=== PATIENT | female | born 1985 | race Caucasian/White ===

== ENCOUNTER 2017-04-20 15:12 | Emergency (ER) | payer BC, OTHER, SELFPAY ==
[~2017-04-20] VITALS: Ht 170.2 cm; Wt 88.2 kg
[~2017-04-20 15:12] MED LIST: /CIPR75TA OR; /ONDA4TA PO; CLIN150C PO; FLAG500T OR; NUVARING PV; XANA0.25 PO
[2017-04-20] MEDS ORDERED: LIDOCAINE 2% MDV 20 ML VIAL SC ONE (16:45)
[2017-04-20] MEDS ORDERED: ADACEL/BOOSTRIX VACCINE (DIPHTH/PERTUSS/ACELL/TETANUS)0.5ML SYR (90715) IM ONE (17:30)
[2017-04-20 17:40] VITALS: BP 136/73
== END 2017-04-20 17:41 | disposition home or self-care (01) ==
LOC: M ED 15:12
DX: S61.011A Laceration without foreign body of right thumb without damage to nail, initial encounter (principal); W26.0XXA Contact with knife, initial encounter; Y92.099 Unspecified place in other non-institutional residence as the place of occurrence of the external cause; Y93.89 Activity, other specified; Y99.9 Unspecified external cause status; Z83.49 Family history of other endocrine, nutritional and metabolic diseases

== ENCOUNTER → 2017-07-14 | Outpatient (REF) | payer BC | LOC: M LAB REF 09:01 | PROVIDERS: ATTEND Physician Assistant Medical | DX: N39.0 Urinary tract infection, site not specified (principal) ==

== ENCOUNTER → 2021-05-28 | Outpatient (REF) | payer BC ==
[~2021-05-28] MED LIST changes: -/ONDA4TA PO; +ONDA-1 PO
== END ==
LOC: M SFHCWAGY 16:41
PROVIDERS: ATTEND Nurse Practitioner Women's Health
DX: Z12.4 Encounter for screening for malignant neoplasm of cervix (principal)
CPT/HCPCS: 87624; G0123

== ENCOUNTER → 2021-06-05 | Outpatient (REF) | payer BC | LOC: M SFHCWAGY 13:08 | PROVIDERS: ATTEND Nurse Practitioner Women's Health | DX: R30.0 Dysuria (principal) ==

== ENCOUNTER → 2021-08-30 | Outpatient (REF) | payer BC ==
[2021-08-30 18:10] LABS: FOLATE 12.8 NG/ML
== END ==
LOC: M LAB REF 16:25
PROVIDERS: ATTEND Registered Nurse
DX: R53.83 Other fatigue (principal)

== ENCOUNTER → 2021-09-18 | Outpatient (CLI) | payer BC ==
--- NOTE | 2021-09-18 10:35 | REP ---
INDICATION: THYROMEGALY COMPARISON: None. TECHNIQUE: Jiménez scale and color evaluation of the thyroid gland using the linear high frequency transducer. FINDINGS: The thyroid gland is essentially normal in contour, shape, and echogenicity. Few small scattered bilateral hypodensities measuring up to roughly 2 mm diameter are incidental/nonspecific. Right lobe measures 5.8 x 2.1 x 1.8 cm. Left lobe measures 5.6 x 1.7 x 1.5 cm. IMPRESSION: Thyroid gland is upper limits of normal in size with incidental findings. <Electronically signed by Benjie Elaine > 09/18/21 1038
== END ==
LOC: M RAD 10:08
PROVIDERS: ATTEND Registered Nurse
DX: E01.0 Iodine-deficiency related diffuse (endemic) goiter (principal)

== ENCOUNTER → 2022-06-28 | Outpatient (CLI) | payer BC | LOC: M PLALAB 15:42 | PROVIDERS: ATTEND Obstetrics & Gynecology | DX: O26.851 Spotting complicating pregnancy, first trimester (principal); Z3A.00 Weeks of gestation of pregnancy not specified ==

== ENCOUNTER → 2022-07-24 | Outpatient (REF) | payer BC | LOC: M SFHCWAGY 17:13 | PROVIDERS: ATTEND Obstetrics & Gynecology | DX: Z12.4 Encounter for screening for malignant neoplasm of cervix (principal) | CPT/HCPCS: 87624; G0123 ==

== ENCOUNTER → 2022-10-29 | Outpatient (CLI) | payer BC | LOC: M PLALAB 09:20 | PROVIDERS: ATTEND Advanced Practice Midwife | DX: Z34.90 Encounter for supervision of normal pregnancy, unspecified, unspecified trimester (principal) ==

== ENCOUNTER → 2022-10-31 | Outpatient (CLI) | payer BC | LOC: M PLALAB 08:12 | PROVIDERS: ATTEND Advanced Practice Midwife | DX: Z34.90 Encounter for supervision of normal pregnancy, unspecified, unspecified trimester (principal) ==

== ENCOUNTER → 2022-11-07 | Outpatient (CLI) | payer BC ==
[2022-11-07 11:10] LABS: HEMATOCRIT 38.5 % (36.0-47.0); HEMOGLOBIN 13.1 g/dl (12.0-15.5); MEAN CORPUSCULAR HEMOGLOBIN 30.4 pg (27.0-33.0); MEAN CORPUSCULAR VOLUME 89.3 fl (80.0-96.0); PLATELET COUNT, AUTOMATED 222 10^3/uL (150-450); RED BLOOD COUNT 4.31 10^6/uL (4.00-5.40); WHITE BLOOD COUNT 6.2 10^3/uL (4.0-10.0)
[2022-11-07 12:06] LABS: HIV 1&2 SCREEN CENTAUR NEGATIVE (NEGATIVE)
[2022-11-07 12:13] LABS: HEPATITIS C VIRUS ABY INDEX < 0.0 INDEX (<0.8)
[2022-11-07 12:47] LABS: GC DNA AMPLIFICATION NEGATIVE (NEGATIVE)
== END ==
LOC: M PLALAB 09:09
PROVIDERS: ATTEND Specialist
DX: Z34.01 Encounter for supervision of normal first pregnancy, first trimester (principal)

== ENCOUNTER → 2022-12-09 | Outpatient (CLI) | payer BC | LOC: M PLALAB 08:45 | PROVIDERS: ATTEND Advanced Practice Midwife | DX: Z34.81 Encounter for supervision of other normal pregnancy, first trimester (principal); Z3A.00 Weeks of gestation of pregnancy not specified ==

== ENCOUNTER → 2023-02-06 | Outpatient (CLI) | payer BC | LOC: M WHC 07:06 | PROVIDERS: ATTEND Advanced Practice Midwife | DX: Z34.81 Encounter for supervision of other normal pregnancy, first trimester (principal); Z3A.19 19 weeks gestation of pregnancy ==

== ENCOUNTER → 2023-03-03 | Outpatient (CLI) | payer BC | LOC: M WHC 07:41 | PROVIDERS: ATTEND Specialist | DX: Z34.82 Encounter for supervision of other normal pregnancy, second trimester (principal); Z3A.22 22 weeks gestation of pregnancy ==

== ENCOUNTER → 2023-03-25 | Outpatient (CLI) | payer BC ==
[2023-03-25 14:37] LABS: HEMATOCRIT 31.5 % (36.0-47.0); HEMOGLOBIN 10.5 g/dl (12.0-15.5); MEAN CORPUSCULAR HEMOGLOBIN 30.6 pg (27.0-33.0); MEAN CORPUSCULAR HGB CONC 33.3 g/dl (32.0-36.5); MEAN CORPUSCULAR VOLUME 91.8 fl (80.0-96.0); PLATELET COUNT, AUTOMATED 215 10^3/uL (150-450); RED BLOOD COUNT 3.43 10^6/uL (4.00-5.40); WHITE BLOOD COUNT 9.8 10^3/uL (4.0-10.0)
[2023-03-25 16:23] LABS: GC DNA AMPLIFICATION NEGATIVE (NEGATIVE)
== END ==
LOC: M PLALAB 10:50
PROVIDERS: ATTEND Specialist
DX: Z34.82 Encounter for supervision of other normal pregnancy, second trimester (principal)

== ENCOUNTER → 2023-04-16 | Outpatient (CLI) | payer BC | LOC: M LAB 07:30 | PROVIDERS: ATTEND Specialist | DX: Z34.82 Encounter for supervision of other normal pregnancy, second trimester (principal) ==

== ENCOUNTER → 2023-06-06 | Outpatient (REF) | payer BC | LOC: M SFHCWAGY 09:45 | PROVIDERS: ATTEND Obstetrics & Gynecology | DX: Z36.85 Encounter for antenatal screening for Streptococcus B (principal); O09.519 Supervision of elderly primigravida, unspecified trimester; Z3A.00 Weeks of gestation of pregnancy not specified ==

== ENCOUNTER → 2023-06-30 | Outpatient (CLI) | payer BC ==
[2023-06-30 18:12] LABS: ALBUMIN 2.4 G/DL (3.2-5.2); ALKALINE PHOSPHATASE 161 U/L (46-116); ALT/SGPT 37 U/L (7.0-40); AST/SGOT 25 U/L (<34); BILIRUBIN,TOTAL 0.6 MG/DL (0.3-1.2); BLOOD UREA NITROGEN 16 MG/DL (9-23); CALCIUM LEVEL 8.8 MG/DL (8.5-10.1); CARBON DIOXIDE LEVEL 25 MMOL/L (20-31); CHLORIDE LEVEL 109 MMOL/L (98-107); CREATININE FOR GFR 0.82 MG/DL (0.55-1.30); GLOMERULAR FILTRATION RATE > 60.0 (>60); GLUCOSE, FASTING 82 MG/DL (60-100); POTASSIUM SERUM 4.6 MMOL/L (3.5-5.1); SODIUM LEVEL 140 MMOL/L (136-145); TOTAL PROTEIN 5.6 G/DL (5.7-8.2)
== END ==
LOC: M PLALAB 16:04
PROVIDERS: ATTEND Advanced Practice Midwife
DX: O99.713 Diseases of the skin and subcutaneous tissue complicating pregnancy, third trimester (principal); Z3A.00 Weeks of gestation of pregnancy not specified

== ENCOUNTER 2023-07-10 21:59 | Inpatient (IN) | payer BC ==
[~2023-07-10] VITALS: Ht 170.2 cm; Wt 108.0 kg
[2023-07-10 22:12] VITALS: BP 151/70
[2023-07-10] MEDS ORDERED: CARBOPROST TROMETHAMINE 250 MCG/ML AMP IM PRN (22:15)
[2023-07-10] MEDS ORDERED: LACTATED RINGER'S 1000 ML IV PRN (22:15)
[2023-07-10] MEDS ORDERED: OXYTOCIN DRIP 30 UNITS in IV 1 EA IV PRN ×4 (22:15)
[2023-07-10] MEDS ORDERED: TRANEXAMIC ACID INJection 1,000 MG in NS 100 ML IV PRN (22:15)
[2023-07-10] MEDS ORDERED: METHYLERGONOVINE MALEATE 0.2MG/ML 1ML VIAL IM PRN (22:15)
[2023-07-10 22:30] VITALS: BP 128/74
[2023-07-10 22:32] LABS: HEMATOCRIT 36.1 % (36.0-47.0); HEMOGLOBIN 12.4 g/dl (12.0-15.5); MEAN CORPUSCULAR HGB CONC 34.3 g/dl (32.0-36.5); MEAN CORPUSCULAR VOLUME 87.2 fl (80.0-96.0); PLATELET COUNT, AUTOMATED 213 10^3/uL (150-450); RED BLOOD COUNT 4.14 10^6/uL (4.00-5.40); WHITE BLOOD COUNT 11.7 10^3/uL (4.0-10.0)
[2023-07-10 22:50] LABS: LDH LACTATE DEHYDROGENASE 262 U/L (120-246)
[2023-07-10] MEDS ORDERED: ONDANSETRON 4MG 2ML VIAL IV PRN (22:50)
[2023-07-10] MEDS ORDERED: diphenhydrAMINE 50MG/ML VIAL IV PRN (22:50)
[2023-07-10] MEDS ORDERED: ePHEDrine SULFATE 25 MG/5 ML(5MG/ML) SYRINGE IVP PRN (22:50)
[2023-07-10] MEDS ORDERED: FENTANYL/ROPIVACAINE/NACL BAG 100 ML EPIDURAL SCH (22:50)
[2023-07-10] MEDS ORDERED: LR 500 ML IV PRN (22:50)
[2023-07-10] MEDS ORDERED: NALOXONE INJ 0.4MG/1ML VIAL IV PRN (22:50)
[2023-07-10] MEDS ORDERED: EPIDURAL/PCA KEYS XX PRN (22:50)
[2023-07-10 22:51] LABS: ALT/SGPT 23 U/L (7.0-40); AST/SGOT 22 U/L (<34); BILIRUBIN,TOTAL 0.6 MG/DL (0.3-1.2); CREATININE FOR GFR 0.81 MG/DL (0.55-1.30); GLOMERULAR FILTRATION RATE > 60.0 (>60)
[2023-07-10] MEDS ORDERED: OXYTOCIN 30UNITS IN 0.9% NaCl 500ML IV BAG As Ordered ONE (22:55)
[2023-07-10] MEDS ORDERED: LIDOCAINE 1% MDV 20ML VIAL As Ordered ONE (23:01)
[2023-07-10 23:09] LABS: URIC ACID 3.5 MG/DL (3.1-7.8)
[2023-07-10 23:18] VITALS: BP 141/80
[2023-07-10 23:34] VITALS: BP 144/80
[2023-07-10 23:49] VITALS: BP 124/61
[2023-07-11 00:04] VITALS: BP 116/59
[2023-07-11] MEDS ORDERED: LIDOCAINE 1% MDV 20ML VIAL SC ONE (00:50)
[2023-07-11 01:42] VITALS: BP 126/66; O2SAT 98
[2023-07-11] MEDS ORDERED: DIBUCAINE 1% OINTMENT 30GM TOP PRN (02:45)
[2023-07-11] MEDS ORDERED: DOCUSATE SODIUM 100MG CAPSULE PO PRN (02:45)
[2023-07-11] MEDS ORDERED: RHOGAM 300MCG (1500IU) INJ IM SCH (02:45)
[2023-07-11] MEDS ORDERED: METHYLERGONOVINE MALEATE 0.2 MG TAB PO PRN (02:45)
[2023-07-11] MEDS: IBUPROFEN 600MG TAB PO PRN ×2 (02:57→15:18)
[2023-07-11 06:00] VITALS: BP 122/71; O2SAT 98
[2023-07-11] MEDS: PRENATAL VITAMINS CHEWABLE TABLET PO SCH (08:08)
[2023-07-11] MEDS: ACETAMINOPHEN 500 MG TAB PO PRN ×2 (08:11→19:43)
[2023-07-11 18:00] VITALS: BP 116/72; O2SAT 98
[2023-07-12] MEDS: IBUPROFEN 600MG TAB PO PRN ×2 (00:42→09:02)
[2023-07-12 05:38] VITALS: BP 150/94; O2SAT 99
[2023-07-12 07:59] LABS: HEMATOCRIT 31.3 % (36.0-47.0); HEMOGLOBIN 10.5 g/dl (12.0-15.5); MEAN CORPUSCULAR HEMOGLOBIN 30.2 pg (27.0-33.0); MEAN CORPUSCULAR HGB CONC 33.5 g/dl (32.0-36.5); MEAN CORPUSCULAR VOLUME 89.9 fl (80.0-96.0); PLATELET COUNT, AUTOMATED 175 10^3/uL (150-450); RED BLOOD COUNT 3.48 10^6/uL (4.00-5.40); WHITE BLOOD COUNT 7.8 10^3/uL (4.0-10.0)
[2023-07-12] MEDS: PRENATAL VITAMINS CHEWABLE TABLET PO SCH (09:01)
[2023-07-12] MEDS ORDERED: PRENTAB9 PO (09:32)
[2023-07-12] MEDS ORDERED: HOME MED LIST COMPLETE! XX SCH (09:35)
[2023-07-13] MEDS ORDERED: MEASLES,MUMPS,RUBELLA VACCINE INJ (MMR-II) SC.IMMUN ONE (09:00)
== END 2023-07-12 13:15 | disposition home or self-care (01) | DRG 560 ==
LOC: M LDO 21:59 → M LDI 22:06 → M OBS 07-11 01:41
PROVIDERS: ADMIT Obstetrics & Gynecology; ATTEND Obstetrics & Gynecology
PROC: 10E0XZZ Delivery of Products of Conception, External Approach (ICD-10-PCS; principal; 2023-07-10)
PROC: 0KQM0ZZ Repair Perineum Muscle, Open Approach (ICD-10-PCS; 2023-07-10)
DX: O48.0 Post-term pregnancy (principal); E66.9 Obesity, unspecified; Z37.0 Single live birth; Z3A.41 41 weeks gestation of pregnancy; O09.523 Supervision of elderly multigravida, third trimester; O99.214 Obesity complicating childbirth; O69.82X0 Labor and delivery complicated by other cord entanglement, without compression, not applicable or unspecified; O32.6XX0 Maternal care for compound presentation, not applicable or unspecified; O77.0 Labor and delivery complicated by meconium in amniotic fluid; O70.1 Second degree perineal laceration during delivery

== ENCOUNTER → 2025-04-21 | Outpatient (CLI) | payer BC ==
[~2025-04-21] MED LIST changes: +PRENTAB9 PO
== END ==
LOC: M WUC 08:43
PROVIDERS: ATTEND Physician Assistant Medical
DX: M25.572 Pain in left ankle and joints of left foot (principal)